=== PATIENT | male | born 1980 | race Caucasian/White ===

== ENCOUNTER 2017-03-28 04:11 | Emergency (ER) | payer OTHER ==
[2017-03-28] MEDS: HYDROCODONE/APAP (5/325) TAB PO (07:23)
== END 2017-03-28 07:55 | disposition home or self-care (01) ==
LOC: FTE 04:11
DX: J02.9 Acute pharyngitis, unspecified (principal); R50.9 Fever, unspecified; F17.210 Nicotine dependence, cigarettes, uncomplicated
CPT/HCPCS: 99283; Z7502